=== PATIENT | female | born 2005 | race Two or more races ===

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

== ENCOUNTER 2025-10-29 15:26 | Emergency (ER) | payer OTHER ==
[~2025-10-29] VITALS: Ht 154.9 cm; Wt 59.1 kg
[~2025-10-29 15:26] MED LIST: ACET-683 PO
[2025-10-29 17:56] VITALS: O2SAT 98
[2025-10-29 18:00] VITALS: BP 132/62
[2025-10-29 18:21] VITALS: TEMP 98.1
== END 2025-10-29 18:22 | disposition home or self-care (01) ==
LOC: M ED 15:26
DX: S20.211A Contusion of right front wall of thorax, initial encounter (principal); S16.1XXA Strain of muscle, fascia and tendon at neck level, initial encounter; M54.50 Low back pain, unspecified; Y04.8XXA Assault by other bodily force, initial encounter; Y92.59 Other trade areas as the place of occurrence of the external cause; G43.909 Migraine, unspecified, not intractable, without status migrainosus; Y07.04 Female partner, perpetrator of maltreatment and neglect; Y93.9 Activity, unspecified; Y99.9 Unspecified external cause status